=== PATIENT | female | born 1960 | race Native Hawaiian/Other Pacific Islander ===

== ENCOUNTER 2018-02-09 09:22 | Outpatient (CLI) | payer BC | END 2018-02-09 22:11 | disposition home or self-care (01) | LOC: MAMMO 09:22 | DX: N63.20 Unspecified lump in the left breast, unspecified quadrant (principal) ==

== ENCOUNTER 2021-08-12 08:54 | Outpatient (CLI) | payer OTHER | END 2021-08-12 19:26 | disposition home or self-care (01) | LOC: MAMMO 08:54 | PROVIDERS: ATTEND Nurse Practitioner Family | DX: Z12.31 Encounter for screening mammogram for malignant neoplasm of breast (principal) ==